=== PATIENT | female | born 1995 | race American Indian/Alaskan Native ===

== ENCOUNTER 2018-06-13 16:51 | Outpatient (CLI) | payer OTHER ==
[2018-06-13] MEDS ORDERED: LACTATED RINGERS 500 ML IV ONE (17:00)
[2018-06-13 17:15] VITALS: BP 112/66
[2018-06-13 17:33] LABS: Amphetamine Screen,Urine PRESUMPTIVE NEGATIVE; Benzodiazepines Screen,Urine PRESUMPTIVE NEGATIVE; Cannabinoid Screen,Urine PRESUMPTIVE NEGATIVE; Cocaine Screen,Urine PRESUMPTIVE NEGATIVE; Methadone Screen,Urine PRESUMPTIVE NEGATIVE; Opiate Screen,Urine PRESUMPTIVE NEGATIVE
[2018-06-13 17:46] LABS: Bacteria,Urine 1+ /HPF (Negative); Bilirubin,Urine NEG (Negative); Blood,Urine SM (Negative); Color,Urine Yellow (Yellow); Hyaline Casts,Urine 6 /LPF; Mucus,Urine 1+ /HPF; WBC,Urine > 182.0 /HPF (0.0-6.0)
[2018-06-13] MEDS ORDERED: ANCEF IM STA (18:08)
[2018-06-13] MEDS ORDERED: XYLOCAINE CARDIAC IV ONE (18:16)
[2018-06-13] MEDS ORDERED: XYLOCAINE MPF 2% ONE (18:17)
== END 2018-06-13 18:43 | disposition home or self-care (01) ==
LOC: TRG 16:51
PROVIDERS: ATTEND Obstetrics & Gynecology
DX: O46.93 Antepartum hemorrhage, unspecified, third trimester (principal); O62.9 Abnormality of forces of labor, unspecified; O99.513 Diseases of the respiratory system complicating pregnancy, third trimester; J45.909 Unspecified asthma, uncomplicated; Z3A.33 33 weeks gestation of pregnancy
CPT/HCPCS: 80307; 81001; 96372; J0690; J2001

== ENCOUNTER 2019-04-05 17:09 | Emergency (ER) | payer SELFPAY ==
[2019-04-05] MEDS ORDERED: IBUPROFEN 600 MG TAB PO ONE ×2 (17:40→17:41)
[2019-04-05] MEDS ORDERED: SODIUM CHLORIDE 0.9% 1000 ML IV SOLN IV ONE (17:40)
--- NOTE | 2019-04-05 17:43 | Emergency Department Report ---
Blank Doc - Documentation Documentation: 24-year-old female that presents with URI, fever, tachy. This initial assessment/diagnostic orders/clinical plan/treatment(s) is/are subject to change based on patient's health status, clinical progression and re- assessment by fellow clinical providers in the ED. Further treatment and workup at subsequent clinical providers discretion. Patient/guardians urged not to elope from the ED as their condition may be serious if not clinically assessed and managed. Initial orders include: 1- Patient sent to MAIN for further evaluation and treatment 2- sepsis protocol initied
--- NOTE | 2019-04-05 18:11 | XRay Report ---
CHEST 1 VIEW INDICATION / CLINICAL INFORMATION: sepsis. COMPARISON: None available. Findings: Patchy, ill-defined airspace opacity at the left lung base without overt consolidation. There may be minimal left pleural fluid. No right pleural fluid. No pneumothorax. The cardiomediastinal silhouette is normal. IMPRESSION: Left lower lobe pneumonia. Signer Name: Alber Muniz MD Signed: 04/05/2019 6:07 PM Workstation Name: [id number]
[2019-04-05 18:39] LABS: Alanine Aminotransferase 22 units/L (7-56); Albumin 4.3 g/dL (3.9-5); BUN/Creatinine Ratio 14; Blood Urea Nitrogen 11 mg/dL (7-17); Hemolysis Index 4
[2019-04-05] MEDS ORDERED: CEFEPIME/NS 2 GM/100 ML 2 GM/100 ML BAG IV ONE (18:44)
--- NOTE | 2019-04-05 18:44 | Emergency Department Report ---
ED Fever HPI - General Chief Complaint: Upper Respiratory Infection Stated Complaint: BODY ACHE FEVER Time Seen by Provider: 04/05/19 17:40 Source: patient, family Exam Limitations: no limitations - History of Present Illness Initial Comments: Patient is a 24-year-old female that presents emergency room with complaints of body aches and fever x1 week. Patient states she has not seen any physician or gone to any urgent cares for this problem. Patient states her fever is high. Patient has not checked her fever with a thermometer. Patient's fever is subjective. Patient states her body aches are a 10 out of 10. Patient states her body aches are better with rest and worse with movement. Patient states she has a past medical history of asthma. 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 denies: nausea/vomiting, rash, shortness of breath, sore throat, stiff neck, syncope, weakness ED Review of Systems ROS: Stated complaint: BODY ACHE FEVER Other details as noted in HPI Constitutional: chills, fever Eyes: denies: eye pain, eye discharge, vision change ENT: denies: ear pain, throat pain Respiratory: cough. denies: shortness of breath, wheezing Cardiovascular: denies: chest pain, palpitations Endocrine: no symptoms reported Gastrointestinal: denies: abdominal pain, nausea, diarrhea Genitourinary: denies: urgency, dysuria, discharge Musculoskeletal: denies: back pain, joint swelling, arthralgia Skin: denies: rash, lesions Neurological: denies: headache, weakness, paresthesias Psychiatric: denies: anxiety, depression Hematological/Lymphatic: denies: easy bleeding, easy bruising ED Past Medical Hx - Past Medical History Previous Medical History?: Yes Hx Hypertension: No Hx Diabetes: No Hx Deep Vein Thrombosis: No Hx Renal Disease: No Hx Sickle Cell Disease: No Hx Seizures: No Hx Asthma: Yes (2012) Hx HIV: No - Surgical History Past Surgical History?: No - Family History Family history: no significant - Social History Smoking Status: Never Smoker Substance Use Type: None - Medications Home Medications: Home Medications Medication Instructions Recorded Confirmed Last Taken Type Amoxicillin [Amoxicillin TAB] 875 mg PO BID 10 Days #20 tablet 04/05/19 Unknown Rx Doxycycline Hyclate [Doxycycline 100 mg PO Q12HR 10 Days #20 tab 04/05/19 Unknown Rx Hyclate TAB] methylPREDNISolone [Medrol 4MG 4 mg PO DAILY 6 Days #1 tab.ds.pk 04/05/19 Unknown Rx DOSEPAK (21 tabs)] ED Physical Exam - General Limitations: No Limitations General appearance: alert, in no apparent distress - Head Head exam: Present: atraumatic, normocephalic - Eye Eye exam: Present: normal appearance - ENT ENT exam: Present: mucous membranes moist - Neck Neck exam: Present: normal inspection - Respiratory Respiratory exam: Present: rhonchi. Absent: respiratory distress, wheezes, rales - Cardiovascular Cardiovascular Exam: Present: regular rate, normal rhythm. Absent: systolic murmur, diastolic murmur, rubs, gallop - GI/Abdominal GI/Abdominal exam: Present: soft, normal bowel sounds. Absent: distended, tenderness, guarding - Rectal Rectal exam: Present: deferred - Extremities Exam Extremities exam: Present: normal inspection - Back Exam Back exam: Present: normal inspection - Neurological Exam Neurological exam: Present: alert, oriented X3 - Psychiatric Psychiatric exam: Present: normal affect, normal mood - Skin Skin exam: Present: warm, dry, intact, normal color. Absent: rash ED Course Vital Signs 04/05/19 04/05/19 04/05/19 17:34 18:14 18:15 Temperature 100.7 F H Pulse Rate 163 H 137 H 140 H Respiratory 20 26 H Rate Blood Pressure 107/63 Blood Pressure [Left] O2 Sat by Pulse 98 Oximetry 04/05/19 04/05/19 04/05/19 18:25 18:30 18:45 Temperature Pulse Rate 101 H 133 H 129 H Respiratory 32 H 24 24 Rate Blood Pressure 93/41 92/48 Blood Pressure 103/49 [Left] O2 Sat by Pulse 97 98 99 Oximetry 04/05/19 04/05/19 04/05/19 19:00 19:59 20:01 Temperature 99.4 F Pulse Rate 128 H 116 H Respiratory 25 H 16 Rate Blood Pressure 94/43 98/47 Blood Pressure [Left] O2 Sat by Pulse 97 97 Oximetry - Reevaluation(s) Reevaluation #1: Patient's heart rate elevated and is currently getting fluids. 04/05/19 18:00 Reevaluation #2: Heart rate is improving. Patient has had saline and antibiotics. 04/05/19 19:00 Reevaluation #3: Patient states that she is pain-free. Patient states she is feeling much better. Patient denies fever. I discussed all results and clinical findings with patient. I discussed plan of care with patient. Patient agrees with plan of care. Patient is stable for discharge. Patient will be discharged home. Patient given discharge instructio ns. Patient voiced understanding of discharge instructions. 04/05/19 22:01 ED Medical Decision Making - Lab Data Result diagrams: 04/05/19 21:00 04/05/19 17:49 - EKG Data -: EKG Interpreted by Me EKG shows normal: sinus rhythm, axis, intervals, QRS complexes, ST-T waves Rate: tachycardia - Radiology Data Radiology results: report reviewed, image reviewed CHEST 1 VIEW INDICATION / CLINICAL INFORMATION: sepsis. COMPARISON: None available. Findings: Patchy, ill-defined airspace opacity at the left lung base without overt consolidation. There may be minimal left pleural fluid. No right pleural fluid. No pneumothorax. The cardiomediastinal silhouette is normal. IMPRESSION: Left lower lobe pneumonia. - Medical Decision Making Patient is a 24-year-old female that presents emergency room with complaints of body aches and fever. Patient found to have a left lower lobe pneumonia. Patient is stable for discharge. Patient given fluids for her tachycardia and her heart rate improved. Patient's labs were done and unremarkable. Patient negative for flu. Patient's x-ray shows a left lower lobe pneumonia. Patient given fluids and antibiotics in the ER and responded well to therapy. Patient left asymptomatic. - Differential Diagnosis Pneumonia, flu, URI, fever, body aches, dehydration Critical Care Time: Yes Critical care time in (mins) excluding proc time.: 45 Critical care attestation.: If time is entered above; I have spent that time in minutes in the direct care of this critically ill patient, excluding procedure time. Critical Care Time: 45 minutes ED Disposition Clinical Impression: Cough, Body aches, Tachycardia, Dehydration Fever Qualifiers: Fever type: unspecified Qualified Code(s): R50.9 - Fever, unspecified Pneumonia Qualifiers: Pneumonia type: due to unspecified organism Laterality: left Lung location: lower lobe of lung Qualified Code(s): J18.9 - Pneumonia, unspecified organism Disposition: TO HOME OR SELFCARE Is pt being admited?: No Does the pt Need Aspirin: No Condition: Stable Instructions: Bacterial Pneumonia (ED), Community-acquired Pneumonia (ED) Additional Instructions: Patient to follow-up with primary care in 2 to 3 days. Patient to return to ER if condition worsens, changes or new symptoms arise. Patient to take Tylenol or ibuprofen as needed for pain. Patient to rest. Patient to increase water. Patient to take meds as directed. Prescriptions: Amoxicillin [Amoxicillin TAB] 875 mg PO BID 10 Days #20 tablet Doxycycline Hyclate [Doxycycline Hyclate TAB] 100 mg PO Q12HR 10 Days #20 tab methylPREDNISolone [Medrol 4MG DOSEPAK (21 tabs)] 4 mg PO DAILY 6 Days #1 tab.ds.pk Referrals: PRIMARY CARE,MD [Primary Care Provider] - 2-3 Days Time of Disposition: 21:58
[2019-04-05 18:51] LABS: Free T4 (Free Thyroxine) 1.22 ng/dL (0.76-1.46); HCG,Quantitative < 2 mIU/mL (0-4)
[2019-04-05] MEDS ORDERED: SODIUM CHLORIDE 0.9% 1000 ML 1,000 ML IV ONE (19:41)
[2019-04-05 19:51] LABS: Bilirubin,Urine NEG (Negative); Blood,Urine SM (Negative); Color,Urine Amber (Yellow); Mucus,Urine 1+ /HPF
[2019-04-05 20:03] VITALS: BP 98/47
[2019-04-05 21:12] LABS: Basophils % (Auto) 0.2 % (0.0-1.8); Eosinophils % (Auto) 0.1 % (0.0-4.3); Hematocrit 32.9 % (30.3-42.9); Hemoglobin 11.7 gm/dl (10.1-14.3); Lymphocytes # (Auto) 1.4 K/mm3 (1.2-5.4); Lymphocytes % (Auto) 13.5 % (13.4-35.0); Mean Corpuscular HGB Conc 36 % (30-34); Mean Corpuscular Volume 90 fl (79-97); Monocytes # (Auto) 0.6 K/mm3 (0.0-0.8); Monocytes % (Auto) 6.1 % (0.0-7.3); Platelet Count 174 K/mm3 (140-440); Red Blood Count 3.64 M/mm3 (3.65-5.03); Red Cell Distribution Width 12.6 % (13.2-15.2)
== END 2019-04-05 22:35 | disposition home or self-care (01) ==
LOC: ED 17:09
DX: R00.0 Tachycardia, unspecified (principal); E86.0 Dehydration; J18.9 Pneumonia, unspecified organism; J45.909 Unspecified asthma, uncomplicated
CPT/HCPCS: 36415; 71045; 80053; 81001; 82140; 84439; 84443; 84702; 85025; 87040; 87400; 93005; 93010; 96361; 96365; 99284; J0692; J7030

== ENCOUNTER 2020-02-25 14:32 | Emergency (ER) | payer SELFPAY | END 2020-02-25 15:12 | LOC: ED 14:32 | DX: Z00.8 Encounter for other general examination (principal); Z53.21 Procedure and treatment not carried out due to patient leaving prior to being seen by health care provider ==